=== PATIENT | female | born 1995 | race Caucasian/White ===

== ENCOUNTER 2019-12-14 14:05 | Emergency (ER) | payer OTHER ==
[~2019-12-14] VITALS: Ht 165.1 cm; Wt 127.5 kg
[2019-12-14 14:09] VITALS: BP 130/67
--- NOTE | 2019-12-14 14:13 | NUR ---
PT TO ER BED 6
--- NOTE | 2019-12-14 14:19 | NUR ---
24 y/o female c/o throat discomfort and nasal congestion x 3 days. pt states she was seen at urgent care around 1100 and they suggested she came to ER due to swollen tonsils. denies pain. denies difficulty breathing/swallowing. rr even and unlabored. states dry, non-productive cough. afebrile. was given ceftriaxone IM and rapid strep, negative results. sitting upright awake and alert. x 1 side rail raised. vss medhx: denies allergies: nka
--- NOTE | 2019-12-14 14:45 | NUR ---
ANDREW Figueroa at bedside examining pt.
[2019-12-14] MEDS: KETOROLAC 30 MG/ML VIAL IM ONE (15:06)
[2019-12-14] MEDS: DEXAMETHASONE 10 MG/ML VIAL IM ONE (15:09)
--- NOTE | 2019-12-14 15:18 | NUR ---
Patient discharged with v/s stable. Written and verbal after care instructions given and explained. Patient alert, oriented and verbalized understanding of instructions. Ambulatory with steady gait. All questions addressed prior to discharge. ID band removed. Patient advised to follow up with PMD. Rx of IBUPROFEN, AMOXICILLIN, AND PREDNISONE given. Patient educated on indication of medication including possible reaction and side effects. Opportunity to ask questions provided and answered.
== END 2019-12-14 14:13 | disposition home or self-care (01) ==
LOC: MED 14:05
DX: J03.90 Acute tonsillitis, unspecified (principal)
CPT/HCPCS: 81025; 96372; 99284; J1100; J1885